=== PATIENT | female | born 1995 | race Caucasian/White ===

== ENCOUNTER 2020-07-02 19:56 | Emergency (ER) | payer SELFPAY ==
--- NOTE | 2020-07-02 20:35 | ER Document Report ---
ED Medical Screen (RME) - General Chief Complaint: Abdominal Pain Stated Complaint: ABDOMINAL PAIN Time Seen by Provider: 07/02/20 20:32 Mode of Arrival: Ambulatory Information source: Patient Notes: 25-year-old female presented to ED for bilateral lower abdominal/pelvic pain. She states her menstrual cycle was about a week ago. She states she does have a bilateral tubal ligation. Denies nausea vomiting or diarrhea. Denies any fevers. She states that she thinks she might of had some ovarian cyst in the past but she had a with her daughter in 2017 she has had lower abdominal pain since then off and on. We will get blood urine and a transvaginal ultrasound and have her seen by 1 of the providers. I have greeted and performed a rapid initial assessment of this patient. A comprehensive ED assessment and evaluation of the patient, analysis of test results and completion of medical decision making process will be conducted by an additional ED providers. Physical Exam - Vital signs Vitals: Temp Pulse Resp BP Pulse Ox 97.7 F 63 16 111/68 100 07/02/20 20:10 07/02/20 20:10 07/02/20 20:10 07/02/20 20:10 07/02/20 20:10 Course - Vital Signs Vital signs: Temp Pulse Resp BP Pulse Ox 97.7 F 63 16 111/68 100 07/02/20 20:10 07/02/20 20:10 07/02/20 20:10 07/02/20 20:10 07/02/20 20:10
[2020-07-02 21:26] LABS: ABSOLUTE EOSINOPHILS # (AUTO) 0.1 10^3/uL (0.0-0.6); ABSOLUTE LYMPHOCYTES (AUTO) 1.8 10^3/uL (0.5-4.7); ABSOLUTE MONOCYTES (AUTO) 0.5 10^3/uL (0.1-1.4); ABSOLUTE NEUT (AUTO) 4.3 10^3/uL (1.7-8.2); BASOPHILS % (AUTO) 0.3 % (0-2); EOSINOPHILS % (AUTO) 1.9 % (0-6); HEMATOCRIT 39.8 % (36.0-47.0); HEMOGLOBIN 13.7 g/dL (12.0-15.5); LYMPHOCYTES % (AUTO) 27.1 % (13-45); MEAN CORPUSCULAR HEMOGLOBIN 30.3 pg (27.0-33.4); MEAN CORPUSCULAR HGB CONC 34.4 g/dL (32.0-36.0); MEAN CORPUSCULAR VOLUME 88 fl (80-97); MONOCYTES % (AUTO) 7.1 % (3-13); PLATELET COUNT 155 10^3/uL (150-450); RED BLOOD COUNT 4.52 10^6/uL (3.72-5.28); RED CELL DISTRIBUTION WIDTH 12.3 % (11.5-14.0); SEGMENTED NEUTROPHILS % (AUTO) 63.6 % (42-78); TOTAL CELLS COUNTED % (AUTO) 100 %; WHITE BLOOD COUNT 6.8 10^3/uL (4.0-10.5)
[2020-07-02 21:48] LABS: ALBUMIN 4.7 g/dL (3.5-5.0); ALKALINE PHOSPHATASE 43 U/L (38-126); ANION GAP 11 (5-19); ASPARTATE AMINO TRANSFERASE 22 U/L (14-36); BILIRUBIN,DIRECT 0.2 mg/dL (0.0-0.4); BILIRUBIN,TOTAL 0.7 mg/dL (0.2-1.3); BLOOD UREA NITROGEN 13 mg/dL (7-20); CALCIUM 9.4 mg/dL (8.4-10.2); CARBON DIOXIDE 28 mmol/L (22-30); CHLORIDE 103 mmol/L (98-107); GLUCOSE 89 mg/dL (75-110); POTASSIUM 4.2 mmol/L (3.6-5.0); TOTAL PROTEIN 7.7 g/dL (6.3-8.2)
[2020-07-02 21:52] LABS: APPEARANCE,URINE SLIGHTLY-CLOUDY; BILIRUBIN,URINE NEGATIVE (NEGATIVE); COLOR,URINE YELLOW; GLUCOSE, URINE NEGATIVE (NEGATIVE); KETONES,URINE 20 mg/dL (NEGATIVE); LEUKOCYTE ESTERASE,URINE NEGATIVE (NEGATIVE); NITRITE,URINE NEGATIVE (NEGATIVE); PROTEIN,URINE NEGATIVE (NEGATIVE); URINE SPECIFIC GRAVITY 1.023; UROBILINOGEN,URINE NEGATIVE mg/dL (<2.0)
--- NOTE | 2020-07-02 22:13 | RADIOLOGY REPORT (SQ) ---
EXAM DESCRIPTION: US PELVIS TRANSVAGINAL COMPLETED DATE/TME: 07/02/2020 20:42 CLINICAL HISTORY: 25 years, Female, pelvic pain bilaterally COMPARISON: None. TECHNIQUE: LIMITATIONS: None. FINDINGS: There is a 2 cm dominant follicle in the right ovary. No follow-up imaging is recommended. Reference: Radiology 2010 Jun;256(3):203-84 Blood flow was demonstrated in the right ovary with Doppler. The left ovary could not be visualized. The uterus measures 10.6 x 6 x 4.2 cm in overall size. There are no fibroids. The endometrial stripe measures 8.7 mm. No free fluid. IMPRESSION: No acute finding. copyright 2010 [employer]- All Rights Reserved
[2020-07-02 22:25] LABS: CHLAM PCR NOT DETECTED (NOT DETECT)
--- NOTE | 2020-07-03 00:01 | ER Document Report ---
ED General - General Chief Complaint: Lower Abdominal Pain Stated Complaint: ABDOMINAL PAIN Time Seen by Provider: 07/02/20 20:32 Primary Care Provider: [facility] [Provider Group] - Follow up as needed Mode of Arrival: Ambulatory - [facility] Notes: Patient is a 25-year-old female who presents with lower abdominal pain for the past 2 days. Patient reports intermittent dysuria and urinary frequency but denies hematuria, nausea, vomiting, fever, diarrhea, constipation, chest pain, shortness of breath, vaginal bleeding. Patient states her pain is exacerbated with standing. Patient has taken ibuprofen and used a heated blanket with some relief. Patient has a history of ovarian cysts and a in 2017. Patient states she had complications with her and had to be taken back to the operating room. She reports having intermittent of abdominal pain since. Patient reports occasional alcohol use but denies smoking tobacco and recreational drug use. - Related Data Allergies/Adverse Reactions: amoxicillin [From Augmentin] Allergy (Verified 07/02/20 20:35) clavulanic acid [From Augmentin] Allergy (Verified 07/02/20 20:35) Home Medications: zoloft Past Medical History - General Information source: Patient - Social History Smoking Status: Never Smoker Chew tobacco use (# tins/day): No Frequency of alcohol use: None Drug Abuse: None Family History: Reviewed & Not Pertinent Psychiatric Medical History: Reports: Hx Depression Past Surgical History: Reports: Hx Section Review of Systems - Review of Systems Constitutional: No symptoms reported EENT: No symptoms reported Cardiovascular: No symptoms reported Respiratory: No symptoms reported Gastrointestinal: See HPI Genitourinary: See HPI Female Genitourinary: No symptoms reported Musculoskeletal: No symptoms reported Skin: No symptoms reported Hematologic/Lymphatic: No symptoms reported Neurological/Psychological: No symptoms reported Physical Exam - Vital signs Vitals: Temp Pulse Resp BP Pulse Ox 97.7 F 63 16 111/68 100 07/02/20 20:10 07/02/20 20:10 07/02/20 20:10 07/02/20 20:10 07/02/20 20:10 - Notes Notes: PHYSICAL EXAMINATION: VITALS: Vitals reviewed and within normal limits. GENERAL: Well-appearing, well-nourished and in no acute distress. HEAD: Atraumatic, normocephalic. EYES: Pupils equal round and reactive to light, extraocular movements intact, sclera anicteric, conjunctiva are normal. ENT: nares patent, oropharynx clear without exudates. Moist mucous membranes. NECK: Normal range of motion, supple without lymphadenopathy. LUNGS: Breath sounds clear to auscultation bilaterally and equal. No wheezes rales or rhonchi. HEART: Regular rate and rhythm without murmurs. ABDOMEN: Soft abdomen with normoactive bowel sounds. Tenderness to left lower quadrant. No guarding, no rebound. No masses appreciated. EXTREMITIES: Normal range of motion, no pitting or edema. No cyanosis. NEUROLOGICAL: No focal neurological deficits. Moves all extremities spontaneousl y and on command. PSYCH: Normal mood, normal affect. SKIN: Warm, Dry, normal turgor, no rashes or lesions noted. Course - Re-evaluation Re-evalutation: Patient is a 25-year-old female with a history of ovarian cysts who presents with lower abdominal pain for the past 2 days. On exam, patient is tender to palpation to left lower quadrant. Vitals are within normal limits. Lab work and UA are unremarkable. Transvaginal ultrasound shows no acute findings but could not visualize the left ovary. Discussed results with patient and the possibility of a left ovarian cyst that was not visualized on ultrasound. Recommended alternating with Tylenol and ibuprofen for pain relief and the use of a heating pad. Return precautions given, patient will be discharged home. - Vital Signs Vital signs: Temp Pulse Resp BP Pulse Ox 98.2 F 65 16 115/69 100 07/03/20 01:27 07/03/20 01:27 07/03/20 01:27 07/03/20 01:27 07/03/20 01:27 - Laboratory Result Diagrams: 07/02/20 20:55 07/02/20 20:55 Laboratory results interpreted by me: 07/02/20 20:42 Urine Ketones 20 H Discharge - Discharge Clinical Impression: Abdominal pain Qualifiers: Abdominal location: lower abdomen, unspecified Qualified Code(s): R10.30 - Lower abdominal pain, unspecified Condition: Stable Disposition: HOME, SELF-CARE Additional Instructions: Take ibuprofen/tylenol and use a heating pad as needed for pain. Return if symptoms worsen or if you begin to have fever, persistent vomiting or vaginal discharge. Abdominal Pain There are many causes of abdominal pain. Pain can mean a serious problem requiring surgery (such as appendicitis). It can also be an innocent problem that goes away on its own (such as a viral infection). Often, time must pass to determine the cause of pain. The physician does not feel that hospitalization is necessary, at present. Things may change within the next 24 hours. Call the doctor or come back for re- examination if any problems occur, such as: (1) Pain that becomes more severe, steady, or becomes concentrated in one specific area. Also, pain that is more severe with movement or coughing. (2) Vomiting that persists or becomes more frequent. (3) Blood in the vomitus, urine, or bowel movements. Blood in the stool may have a tarry or black appearance. (4) Shaking chills or fever greater than 100 degrees F. (5) The abdomen becomes more distended or swollen. (6) Bowel movements cease. (7) Failure to improve as expected. Referrals: [facility] [Provider Group] - Follow up as needed
[2020-07-03 01:29] VITALS: BP 115/69
== END 2020-07-03 01:27 | disposition home or self-care (01) ==
LOC: ER 19:56
DX: R10.30 Lower abdominal pain, unspecified (principal); R35.0 Frequency of micturition
CPT/HCPCS: 36415; 76830; 80053; 81001; 84703; 85025; 87086; 87491; 87591; 99284